=== PATIENT | male | born 1975 | race Caucasian/White ===

== ENCOUNTER 2020-01-23 13:05 | Outpatient (NON) | payer OTHER, SELFPAY ==
[2020-01-23 21:51] LABS: SARS-CoV-2 RNA PCR Negative
== END 2020-01-23 13:06 ==
PROVIDERS: Visit Provider Family Medicine
DX: R50.9 Fever, unspecified (principal); Z20.828 Contact with and (suspected) exposure to other viral communicable diseases
CPT/HCPCS: 87635; C9803; U0003

== ENCOUNTER → 2020-02-06 15:51 | Outpatient (CLI) | payer OTHER, SELFPAY ==
--- NOTE | ~2020-02-06 | XR_ITS ---
EXAMINATION: XR chest 2V DATE: 02/06/2020 16:03 INDICATION: Cough. TECHNIQUE: Frontal and lateral views of the chest were obtained. COMPARISON: Chest 2 views 01/30/2017, CT abdomen 07/19/18 FINDINGS: The chest demonstrates clear lungs without pneumonia, pleural effusion, or pneumothorax. Th e heart size is normal. IMPRESSION: 1. No acute cardiopulmonary disease. Reviewed, dictated and finalized at location A.
== END ==
PROVIDERS: PCP Family Medicine; Visit Provider Family Medicine
DX: R05 Cough (principal)
CPT/HCPCS: 71046

== ENCOUNTER → 2021-08-13 02:00 | Outpatient (CLI) | payer OTHER, SELFPAY ==
[2021-08-13 11:48] LABS: SARS-CoV-2 RNA PCR Negative
== END ==
PROVIDERS: PCP Nurse Practitioner; Visit Provider Internal Medicine Gastroenterology
DX: Z01.812 Encounter for preprocedural laboratory examination (principal); Z20.822 Contact with and (suspected) exposure to COVID-19
CPT/HCPCS: C9803; U0003; U0005

== ENCOUNTER 2021-08-16 01:12 | Day surgery (SDC) | payer OTHER, SELFPAY ==
[2021-08-05 13:02] VITALS: BMI 45.8
[2021-08-16 08:03] VITALS: BP 145/92; PULSE 101; RESP 20; TEMP 36.2; O2SAT 98
--- NOTE | 2021-08-16 08:09 | WPDANESEPPF ---
Anes - Initial Pre Proc Eval Procedure: Operation Date: 08/16/21 09:00 Proposed Procedures p Screening Colonoscopy - Herb Lee MD Date/Time: 08/16/21 08:09 Surgeon: Herb Lee MD Pre Op Diagnosis: neoplasm screening Patient Data Age: 46 Gender: M Height: 1.75 m Weight: 142.8 kg Last Vital Signs Temp 36.2 C L 08/16/21 08:03 Pulse 101 H 08/16/21 08:03 Resp 20 08/16/21 08:03 BP 145/92 H 08/16/21 08:03 Pulse Ox 98 08/16/21 08:03 Allergies Allergy/AdvReac Type Severity Reaction Status Date / Time lisinopril AdvReac Cough Verified 08/16/21 08:01 Home Medications Medication Instructions Recorded Confirmed Type aspirin 81 mg tablet,delayed 81 mg PO DAILY PRN 10/10/20 08/16/21 History release amlodipine 10 mg PO DAILY 08/05/21 08/16/21 History meloxicam 7.5 mg PO DAILY 08/05/21 08/16/21 History metoprolol succinate 25 mg PO DAILY 08/05/21 08/16/21 History Patient hx anesthesia problems: none Family hx anesthesia problems: none Results Review: All pre-operative results and documents have been reviewed as part of the pre-operative evaluation. [facility] Past Medical History Medical History (Updated 08/16/21 @ 08:11 by João Merritt MD) Chronic narcotic use HTN (hypertension) Lumbar radiculopathy SAY (obstructive sleep apnea) Family History Family History Other Hypertension Social History Social History Smoking status: Never smoker Alcohol intake: current Drinks per week: 1 Living arrangements: alone Spiritual care concerns: No Anes - Eval Final PreProcedure Day of Procedure 08/16/21 08:09 Patient weight: morbidly obese Heart: regular rate and rhythm Lungs: clear to auscultation and normal air movement Airway: Mallampati scale class II Neurological: alert and oriented Last oral intake: >/= 8 hours ASA classification: III Emergent: no Anesthetic plan: proceed Anesthesia type and monitoring: general GIVS Results Review: All pre-operative results and documents have been reviewed as part of the pre-operative evaluation. Informed Consent: The patient's anesthetic plan and its attendant risks and benefits were discussed with the patient/family/POA. Questions were solicited and answers provided to the satisfaction of the patient/family/POA.
[2021-08-16] MEDS: LACTATED RINGERS 1,000 ML 150 ML IV CONT (08:10)
--- NOTE | 2021-08-16 08:36 | WPDGICN ---
Assessment and Plan Assessment and plan (1) Family history of colonic polyps: Code(s): Z83.71 - Family history of colonic polyps Status: Acute Assessment and Plan: Patient has 2 brothers that have had colon polyps. He presents today for surveillance colonoscopy. His last colonoscopy 7 years ago was unremarkable. GI Consult Note Consult date/time: 08/16/21 08:36 HPI: Vahe Garcia is a 46 year old male Presents for screening colonoscopy. Patient reports that his current weight appetite and bowel movements are normal. He denies abdominal pain. He has had no bleeding. Family history is significant 2 of his brothers have had colon polyps. Patient denies any blood in his stools. states that his bowel habits are currently normal. Review of Systems Review of Systems: All systems reviewed & are unremarkable except as noted in HPI and below PMFSH Past Medical History Medical History (Updated 08/16/21 @ 08:37 by Herb Lee MD) Chronic narcotic use HTN (hypertension) Lumbar radiculopathy SAY (obstructive sleep apnea) Family History Family History Other Hypertension Social History Social History Smoking status: Never smoker Alcohol intake: current Drinks per week: 1 Living arrangements: alone Spiritual care concerns: No Meds Home Medications and Allergies Home Medications Medication Instructions Recorded Confirmed Type aspirin 81 mg tablet,delayed 81 mg PO DAILY PRN 10/10/20 08/16/21 History release amlodipine 10 mg PO DAILY 08/05/21 08/16/21 History meloxicam 7.5 mg PO DAILY 08/05/21 08/16/21 History metoprolol succinate 25 mg PO DAILY 08/05/21 08/16/21 History Allergies Allergy/AdvReac Type Severity Reaction Status Date / Time lisinopril AdvReac Cough Verified 08/16/21 08:01 Vital Signs Vital Signs - 24 hr 08/16/21 08:03 Temperature 97.2 F L Pulse Rate 101 H Respiratory Rate 20 Blood Pressure 145/92 H Pulse Oximetry 98 Exam Narrative: Physical exam reveals patient to be alert. Vital signs stable. HEENT exam is unremarkable. Patient is anicteric. Lungs are clear to auscultation and percussion. Heart is without murmur or extra sounds. Abdominal exam somewhat obese. Bowel sounds are present soft nontender with no organomegaly. Digital external rectal exam is normal.
[2021-08-16 09:01] VITALS: BP 131/103; PULSE 97; RESP 20; O2SAT 97
[2021-08-16 09:11] VITALS: BP 144/79; PULSE 88; RESP 20; O2SAT 99
[2021-08-16 09:21] VITALS: BP 143/84; PULSE 83; RESP 16; O2SAT 99
== END 2021-08-16 09:30 | disposition home or self-care (01) ==
PROVIDERS: PCP Nurse Practitioner; Visit Provider Internal Medicine Gastroenterology
PROC: 0DJD8ZZ Inspection of Lower Intestinal Tract, Via Natural or Artificial Opening Endoscopic (ICD-10-PCS; CPT 45378; principal; 2021-08-16 09:00)
DX: Z12.11 Encounter for screening for malignant neoplasm of colon (principal); K64.8 Other hemorrhoids; Z83.71 Family history of colonic polyps; I10 Essential (primary) hypertension; G47.33 Obstructive sleep apnea (adult) (pediatric); Z79.82 Long term (current) use of aspirin; E66.01 Morbid (severe) obesity due to excess calories; Z68.42 Body mass index [BMI] 45.0-49.9, adult
CPT/HCPCS: 45378; C9803; J2001; J2704; J7120; U0003; U0005